=== PATIENT | male | born 1950 | race Caucasian/White ===

== ENCOUNTER → 2016-10-14 | Outpatient (CLI) | payer MEDICARE ==
--- NOTE | 2016-10-14 12:38 | XR ---
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 Lucent focus in the proximal metaphysis of the left humerus shows a similar appearance. Somewhat perm eative appearance present mid diaphysis of the left humerus is somewhat more conspicuous on one of th e 2 views than on prior exam. No periosteal reaction, no evident soft tissue mass. IMPRESSION: Similar appearance to prior exam of the proximal lucent lesion. Questionable permeative a ppearance in the mid diaphyseal level. MRI may be of benefit.
--- NOTE | 2016-10-14 12:45 | XR ---
Limited left shoulder HISTORY: Monoclonal gammopathy 2 views of the left shoulder correlated to left humerus same date, bone survey 07/02/2015 Bone mineralization, joint spaces and alignment are stable. Arthropathy present at the acromioclavicu lar joint. Left lung apex as visualized is normal. IMPRESSION: No significant abnormalities evident.
== END ==
LOC: RADXRMAIN 10:23
PROVIDERS: ATTEND Internal Medicine Hematology & Oncology
DX: D47.2 Monoclonal gammopathy (principal)

== ENCOUNTER 2022-07-15 10:32 | Day surgery (SDC) | payer MEDICARE ==
[~2022-07-15 10:32] MED LIST: LACTATED RINGERS 1,000 ML IV SCH; LIDOCAINE 1% (10MG/ML) FOR IV START INTRADERMA PRN
[2022-07-15 13:06] VITALS: RESP 16; TEMP 97.7
[2022-07-15] MEDS ORDERED: LACTATED RINGERS 1,000 ML IV ONE (13:06)
[2022-07-15] MEDS ORDERED: PROPOFOL 10 MG/ML 20 ML VIAL IV ONE (14:13)
--- NOTE | 2022-07-15 14:48 | P.PCN ---
Date of Procedure: 07/15/22 Procedure(s) Performed: BRIEF HISTORY: Patient is a 71-year-old pleasant male scheduled for an elective colonoscopy as a part of screening for colon cancer. His father was diagnosed with colon cancer at age 80. PROCEDURE PERFORMED: Colonoscopy snare polypectomy. PREOPERATIVE DIAGNOSIS: Greening for colon Cancer and family history of colon cancer. IV sedation per Anesthesia. PROCEDURE: After informed consent was obtained, the patient, was brought into the endoscopy unit. IV sedation was administered by Anesthesia under continuous monitoring. Digital rectal examination was normal. Initially the Olympus CF-160 flexible video colonoscope was then inserted in the rectum, gradually advanced into the cecum without any difficulty. Careful examination was performed as the scope was gradually being withdrawn. Ileocecal valve and the appendiceal orifice were visualized and appeared normal. Prep was fair. There was lot of sticky still noted in the right colon which was thoroughly irrigated. Mucosa of the cecum, ascending colon, appeared normal. The transverse colon there was a 1 cm polyp removed by snare polypectomy. Rest of transverse colon, descending colon, sigmoid colon, and rectum appeared normal. Retroflexion was performed in the rectum and no lesions were seen. The patient tolerated the procedure well. IMPRESSION: 1 cm transverse colon polyp status post polypectomy Rest of the colon appeared normal RECOMMENDATIONS: Findings of this examination were discussed with the patient as well as his family. He was advised to follow with the biopsy results and have a repeat colonoscopy in 3-5 years based on the biopsy results.
[2022-07-15 15:45] VITALS: BP 109/59; PULSE 67
== END 2022-07-15 15:55 | disposition home or self-care (01) ==
LOC: ORWHC2ENDO 10:32
PROVIDERS: ATTEND Internal Medicine Gastroenterology
DX: Z12.11 Encounter for screening for malignant neoplasm of colon (principal); D12.3 Benign neoplasm of transverse colon; K21.9 Gastro-esophageal reflux disease without esophagitis; Z80.0 Family history of malignant neoplasm of digestive organs; Z79.899 Other long term (current) drug therapy
CPT/HCPCS: 45385; 88305; J2704